=== PATIENT | male | born 1935 | race Caucasian/White ===

== ENCOUNTER 2019-11-18 16:40 | Inpatient (IN) | payer MEDICARE, MEDICAID ==
[~2019-11-18] VITALS: Ht 167.6 cm; Wt 75.7 kg
[2019-11-18] MEDS ORDERED: MORPHINE SULFATE 4 MG/ML CPJ (NOT FOR IM USE) IV STA (18:12)
[2019-11-18] MEDS ORDERED: SODIUM CHLORIDE 0.9% 1,000 ML IV ONE (18:12)
[2019-11-18 19:29] LABS: BASOPHILS % 0.5 % (0.0-2.0); EOSINOPHILS % 4.8 % (0.0-5.0); HEMATOCRIT. 43.2 % (42.0-52.0); HEMOGLOBIN. 14.7 g/dL (14.0-18.0); LYMPHOCYTES % 28.8 % (20.0-50.0); MEAN CORPUSCULAR HEMOGLOBIN 32.3 pg (28.0-32.0); MEAN PLATELET VOLUME 7.2 fl (7.4-10.4); MONOCYTES % 11.3 % (2.0-8.0); NEUTROPHILS % 54.6 % (40.0-76.0); PLATELET 216 x1000/uL (130-400); RED BLOOD CELL COUNT 4.54 mill/uL (4.7-6.1); RED CELL DISTRIBUTION WIDTH 14.8 % (11.6-14.6)
[2019-11-18 19:30] LABS: CHLORIDE 111 mEq/L (98-107)
[2019-11-18 19:33] LABS: INR 1.1; PROTHROMBIN TIME 11.7 sec (9.6-11.0)
[2019-11-19 02:12] VITALS: BP 128/75
[2019-11-19] MEDS ORDERED: LIP40 PO (02:37)
[2019-11-19] MEDS ORDERED: FAMO20TA8 PO ×2 (02:37→04:25)
[2019-11-19] MEDS ORDERED: CRAN450T10 PO (02:37)
[2019-11-19] MEDS ORDERED: ERGO500013 PO (02:37)
[2019-11-19] MEDS ORDERED: MULT-1116 PO (02:37)
[2019-11-19] MEDS ORDERED: ASPI-1158 PO (02:37)
[2019-11-19] MEDS ORDERED: DOCU-138 PO (02:37)
[2019-11-19] MEDS ORDERED: MORPHINE SULFATE 2 MG/ML CPJ (NOT FOR IM USE) IV PRN (02:45)
[2019-11-19 04:00] VITALS: BP 127/88
[2019-11-19] MEDS: DIPHENHYDRAMINE 50MG CAPSULE PO PRN (04:34)
[2019-11-19] MEDS ORDERED: FAMOTIDINE(NEO) 1MG/ML SUSP PO SCH (07:20)
[2019-11-19 07:31] LABS: BASOPHILS % 0.4 % (0.0-2.0); EOSINOPHILS % 2.7 % (0.0-5.0); HEMATOCRIT. 45.7 % (42.0-52.0); HEMOGLOBIN. 15.4 g/dL (14.0-18.0); LYMPHOCYTES % 23.1 % (20.0-50.0); MEAN CORPUSCULAR HEMOGLOBIN 32.4 pg (28.0-32.0); MEAN CORPUSCULAR VOLUME 96.2 fL (80.0-94.0); MEAN PLATELET VOLUME 7.5 fl (7.4-10.4); MONOCYTES % 11.7 % (2.0-8.0); NEUTROPHILS % 62.1 % (40.0-76.0); PLATELET 264 x1000/uL (130-400); RED BLOOD CELL COUNT 4.75 mill/uL (4.7-6.1); RED CELL DISTRIBUTION WIDTH 14.7 % (11.6-14.6)
[2019-11-19 08:00] VITALS: BP 147/87
[2019-11-19] MEDS: FAMOTIDINE 20MG TABLET PO SCH (08:52)
[2019-11-19] MEDS: DOCUSATE SODIUM 100MG CAPSULE PO SCH ×2 (08:52→16:17)
[2019-11-19] MEDS: MULTIVITAMINS,THER W-MINERALS TABLET PO SCH (08:52)
[2019-11-19] MEDS ORDERED: ASPIRIN 81MG EC TABLET PO SCH (09:00)
[2019-11-19] MEDS ORDERED: MEDICATION NOT ON FORMULARY EA (Multivitamin (Multi-Vitamin Daily) 1 EACH) PO SCH (09:00)
[2019-11-19] MEDS ORDERED: ACETAMINOPHEN 325MG TABLET PO PRN (09:15)
[2019-11-19] MEDS ORDERED: ONDANSETRON HCL 4MG/2ML INJ IV PRN (09:15)
[2019-11-19 12:00] VITALS: BP 147/87
[2019-11-19] MEDS ORDERED: CLONIDINE 0.1MG TABLET PO PRN (15:15)
[2019-11-19 16:00] VITALS: BP 144/80
[2019-11-19 20:00] VITALS: BP 126/73
[2019-11-19] MEDS: ATORVASTATIN CALCIUM 40MG TABLET PO SCH (22:10)
[2019-11-20] VITALS: BP 142/66
[2019-11-20 04:00] VITALS: BP 125/61
[2019-11-20] MEDS: FAMOTIDINE 20MG TABLET PO SCH (06:34)
[2019-11-20] MEDS ORDERED: GENTAMICIN SULF 40MG/ML 2ML VIAL ONE (06:58)
[2019-11-20] MEDS ORDERED: MORPHINE SULFATE/PF 1MG/ML 10ML AMP ONE (06:58)
[2019-11-20] MEDS ORDERED: ROPIVACAINE HCL 10MG/ML 20 ML VIAL EPI ONE (06:59)
[2019-11-20] MEDS ORDERED: EPINEPHRINE 1:1000 1 MG/ML AMP ONE (06:59)
[2019-11-20] MEDS ORDERED: BUPIVACAINE HCL/PF 0.25% (2.5MG/ML) 10ML ONE (06:59)
[2019-11-20] MEDS ORDERED: BACITRACIN 15GM TUBE TOP ONE (06:59)
[2019-11-20] MEDS ORDERED: KETOROLAC 30MG/ML VIAL ONE (06:59)
[2019-11-20] MEDS ORDERED: BACITRACIN 50,000 UNITS/VIAL ONE (07:00)
[2019-11-20] MEDS ORDERED: NORMAL SALINE 0.9% 10 ML SYR ONE ×2 (07:00→09:48)
[2019-11-20] MEDS ORDERED: VANCOMYCIN HCL 1 GM/VIAL ONE (07:00)
[2019-11-20] MEDS ORDERED: TRANEXAMIC ACID 1,000 MG in SODIUM CHLORIDE 0.9% 100 ML IV NR ×4 (07:30)
[2019-11-20] MEDS ORDERED: TRANEXAMIC ACID 1,000 MG/10 ML IV ONE (07:30)
[2019-11-20] MEDS ORDERED: GLYCOPYRROLATE 0.2 MG/ML 2ML VIAL ONE ×2 (07:37→09:31)
[2019-11-20] MEDS ORDERED: FENTANYL CITRATE/PF 50MCG/ML 2ML VIAL ONE (07:37)
[2019-11-20] MEDS ORDERED: PROPOFOL 200MG/20ML VIAL IV ONE (07:37)
[2019-11-20] MEDS ORDERED: ROCURONIUM BROMIDE 10MG/ML VIAL 5ML IV ONE (07:37)
[2019-11-20] MEDS ORDERED: NEOSTIGMINE METHYLSULFATE 1MG/ML 10 ML VIAL ONE (07:37)
[2019-11-20] MEDS ORDERED: MIDAZOLAM HCL 2 MG/2 ML VIAL ONE (07:37)
[2019-11-20] MEDS ORDERED: DEXAMETHASONE 4MG/ML 1ML VIAL ONE (07:39)
[2019-11-20] MEDS ORDERED: ONDANSETRON HCL 4MG/2ML INJ ONE (07:39)
[2019-11-20] MEDS: DOCUSATE SODIUM 100MG CAPSULE PO SCH ×2 (07:46→15:50)
[2019-11-20] MEDS: MULTIVITAMINS,THER W-MINERALS TABLET PO SCH (07:46)
[2019-11-20] MEDS ORDERED: CEFAZOLIN 1000MG PREMIX 50 ML IV SCH (08:05)
[2019-11-20] MEDS ORDERED: HYDROMORPHONE HCL/PF 2MG/ML CPJ IV PRN (08:30)
[2019-11-20] MEDS ORDERED: MEPERIDINE HCL/PF 25MG/ML CPJ IV PRN (08:30)
[2019-11-20] MEDS ORDERED: ONDANSETRON HCL 4MG/2ML INJ IV PRN ×2 (08:30→09:45)
[2019-11-20] MEDS ORDERED: LABETALOL 5MG/ML SYR 20 MG/4 ML SYRINGE IV PRN (08:30)
[2019-11-20 08:37] LABS: BASOPHILS % 0.6 % (0.0-2.0); EOSINOPHILS % 3.5 % (0.0-5.0); HEMATOCRIT. 43.5 % (42.0-52.0); MEAN CORPUSCULAR HEMOGLOBIN 32.6 pg (28.0-32.0); MEAN CORPUSCULAR VOLUME 94.6 fL (80.0-94.0); MEAN PLATELET VOLUME 7.5 fl (7.4-10.4); MONOCYTES % 10.4 % (2.0-8.0); NEUTROPHILS % 65.5 % (40.0-76.0); PLATELET 277 x1000/uL (130-400); RED CELL DISTRIBUTION WIDTH 14.5 % (11.6-14.6)
[2019-11-20 08:45] LABS: CHLORIDE 111 mEq/L (98-107)
[2019-11-20 08:56] LABS: LDL CHOLESTEROL 110 mg/dL (5-100)
[2019-11-20 08:57] LABS: CREATINE KINASE 179 IU/L (39-308)
[2019-11-20 08:58] LABS: HDL CHOLESTEROL 39 mg/dL (40-59)
[2019-11-20 09:00] LABS: CREATINE KINASE MB FRACTION 4.2 ng/mL (0.5-3.6)
[2019-11-20] MEDS ORDERED: HYDROCODONE/ACETAMINOPHEN 10/325MG TABLET PO PRN (09:45)
[2019-11-20] MEDS ORDERED: KETOROLAC 30MG/ML VIAL IV PRN (09:45)
[2019-11-20 12:00] VITALS: BP 125/60
[2019-11-20] MEDS: METOCLOPRAMIDE HCL 10MG/2ML VIAL IV SCH ×2 (13:47→22:42)
[2019-11-20] MEDS: CEFAZOLIN 1000MG PREMIX 50 ML IV SCH (15:50)
[2019-11-20 16:00] VITALS: BP 115/62
[2019-11-20] MEDS ORDERED: ASPIRIN 325MG EC TABLET PO SCH (17:00)
[2019-11-20] MEDS ORDERED: ENOXAPARIN 40MG/0.4ML SYR SUBCUT SCH ×2 (18:00→21:00)
[2019-11-20 20:00] VITALS: BP 119/65
[2019-11-20] MEDS: ATORVASTATIN CALCIUM 40MG TABLET PO SCH (20:22)
[2019-11-20] MEDS: HYDROCODONE/ACETAMINOPHEN 5/325MG TABLET PO PRN (20:25)
[2019-11-21] VITALS: BP 125/65
[2019-11-21] MEDS: CEFAZOLIN 1000MG PREMIX 50 ML IV SCH ×2 (00:55→08:00)
[2019-11-21] MEDS: DIPHENHYDRAMINE 50MG CAPSULE PO PRN ×2 (00:55→11:50)
[2019-11-21 04:00] VITALS: BP 139/64
[2019-11-21] MEDS: METOCLOPRAMIDE HCL 10MG/2ML VIAL IV SCH ×2 (06:00→13:43)
[2019-11-21] MEDS: HYDROCODONE/ACETAMINOPHEN 5/325MG TABLET PO PRN (06:12)
[2019-11-21] MEDS: FAMOTIDINE 20MG TABLET PO SCH (06:45)
[2019-11-21] MEDS ORDERED: LORAZEPAM 2MG/ML CPJ IV PRN (07:45)
[2019-11-21 08:07] LABS: BASOPHILS % 0.4 % (0.0-2.0); EOSINOPHILS % 2.5 % (0.0-5.0); HEMATOCRIT. 38.4 % (42.0-52.0); HEMOGLOBIN. 12.9 g/dL (14.0-18.0); MEAN CORPUSCULAR HEMOGLOBIN 32.1 pg (28.0-32.0); MEAN CORPUSCULAR VOLUME 95.7 fL (80.0-94.0); MEAN PLATELET VOLUME 7.4 fl (7.4-10.4); MONOCYTES % 10.4 % (2.0-8.0); NEUTROPHILS % 70.7 % (40.0-76.0); PLATELET 264 x1000/uL (130-400); RED BLOOD CELL COUNT 4.01 mill/uL (4.7-6.1); RED CELL DISTRIBUTION WIDTH 14.5 % (11.6-14.6)
[2019-11-21 08:44] LABS: CHLORIDE 111 mEq/L (98-107)
[2019-11-21] MEDS: MULTIVITAMINS,THER W-MINERALS TABLET PO SCH (09:23)
[2019-11-21] MEDS: DOCUSATE SODIUM 100MG CAPSULE PO SCH (09:23)
[2019-11-21 11:52] VITALS: BP 119/63
== END 2019-11-21 16:49 | DRG 301 ==
LOC: ER 16:40 → 6EST 20:52 → ENRESERV 11-19 00:16
PROVIDERS: ADMIT Internal Medicine; ATTEND Internal Medicine
PROC: 0SRS0JA Replacement of Left Hip Joint, Femoral Surface with Synthetic Substitute, Uncemented, Open Approach (ICD-10-PCS; principal; 2019-11-20)
DX: S72.002A Fracture of unspecified part of neck of left femur, initial encounter for closed fracture (principal); E43 Unspecified severe protein-calorie malnutrition; E87.8 Other disorders of electrolyte and fluid balance, not elsewhere classified; E86.0 Dehydration; D64.9 Anemia, unspecified; F03.90 Unspecified dementia, unspecified severity, without behavioral disturbance, psychotic disturbance, mood disturbance, and anxiety; E78.5 Hyperlipidemia, unspecified; K21.9 Gastro-esophageal reflux disease without esophagitis; E03.9 Hypothyroidism, unspecified; D72.829 Elevated white blood cell count, unspecified; E78.00 Pure hypercholesterolemia, unspecified; W06.XXXA Fall from bed, initial encounter; R79.89 Other specified abnormal findings of blood chemistry; M17.12 Unilateral primary osteoarthritis, left knee; Y93.89 Activity, other specified; Y92.128 Other place in nursing home as the place of occurrence of the external cause; Z86.73 Personal history of transient ischemic attack (TIA), and cerebral infarction without residual deficits; Y99.8 Other external cause status
CPT/HCPCS: 36415; 71045; 72170; 73502; 73560; 80048; 80053; 80061; 82550; 82553; 83735; 83880; 84439; 84443; 84484; 85025; 85379; 86850; 86900; 88305; 88311; 93005; 93306; 93970; 97162; 97530; 99285; C1776; J0690; J1100; J1580; J1650; J1885; J2060; J2250; J2270; J2274; J2405; J2704; J2710; J2765; J2795; J3010; J3370; J3490; J7030; J7050; Q0163

== ENCOUNTER 2019-12-09 15:32 | Inpatient (IN) | payer MEDICARE, MEDICAID ==
[~2019-12-09] VITALS: Ht 170.2 cm; Wt 67.7 kg
[~2019-12-09 15:32] MED LIST: ASPI-1158 PO; CRAN450T10 PO; DOCU-138 PO; ERGO500013 PO; FAMO20TA8 PO; LIP40 PO; MULT-1116 PO
[2019-12-09] MEDS ORDERED: SODIUM CHLORIDE 0.9% 500 ML IV ONE (15:53)
[2019-12-09] MEDS ORDERED: LEVOFLOXACIN 500MG PREMIX 100 ML IV ONE (16:00)
[2019-12-09 17:03] LABS: BASOPHILS % 0.1 % (0.0-2.0); EOSINOPHILS % 0.1 % (0.0-5.0); HEMATOCRIT. 43.6 % (42.0-52.0); HEMOGLOBIN. 14.2 g/dL (14.0-18.0); LYMPHOCYTES % 12.8 % (20.0-50.0); MEAN CORPUSCULAR HEMOGLOBIN 31.3 pg (28.0-32.0); MEAN CORPUSCULAR VOLUME 96.5 fL (80.0-94.0); MEAN PLATELET VOLUME 8.8 fl (7.4-10.4); MONOCYTES % 7.3 % (2.0-8.0); NEUTROPHILS % 79.7 % (40.0-76.0); PLATELET 517 x1000/uL (130-400); RED BLOOD CELL COUNT 4.52 mill/uL (4.7-6.1); RED CELL DISTRIBUTION WIDTH 15.5 % (11.6-14.6)
[2019-12-09 17:06] LABS: INR 1.2; PROTHROMBIN TIME 12.7 sec (9.6-11.0)
[2019-12-09 17:11] LABS: CHLORIDE 111 mEq/L (98-107)
[2019-12-09 17:15] LABS: ETHANOL BLOOD < 10 mg/dL
[2019-12-09 17:49] LABS: BG BASE EXCESS -7.2 mmol/L (-2.0-2.0); BG CARBOXYHEMOGLOBIN 0.9 % (0.5-1.5); BG DEOXYHEMOGLOBIN 24.9 % (0.0-5.0); BG FRACTION INSPIRED OXYGEN 100; BG HCO3 ACT 20.9 mmol/L (22.0-26.0); BG OXYGEN SATURATION 74.9 % (92.0-98.5); BG OXYHEMOGLOBIN 74.2 % (94.0-97.0); BG PCO2 52.1 mmHg (35.0-45.0); BG PH 7.221 (7.350-7.450); BG PO2 48.6 mmHg (75.0-100.0); BG SAMPLE SITE RIGHT RADIAL; BG TIDAL VOLUME(mL) 500 mL; BG TOTAL HEMOGLOBIN 14.8 g/dL (12.0-18.0); BG VENT MODE VENT - A/C; BG VENT RATE 16 set
[2019-12-09] MEDS ORDERED: ETOMIDATE 2MG/ML 10ML VIAL IV ONE ×2 (18:00)
[2019-12-09] MEDS ORDERED: VECURONIUM BROMIDE 10 MG/VIAL IV ONE ×2 (18:00)
[2019-12-09] MEDS ORDERED: PROPOFOL 10MG/ML 100ML 100 ML IV ONE (18:00)
[2019-12-09 20:00] LABS: BG BASE EXCESS -6.2 mmol/L (-2.0-2.0); BG CARBOXYHEMOGLOBIN 0.2 % (0.5-1.5); BG DEOXYHEMOGLOBIN 1.2 % (0.0-5.0); BG FRACTION INSPIRED OXYGEN 100; BG HCO3 ACT 21.2 mmol/L (22.0-26.0); BG METHEMOGLOBIN 0.2 % (0.0-1.5); BG OXYGEN SATURATION 98.8 % (92.0-98.5); BG OXYHEMOGLOBIN 98.4 % (94.0-97.0); BG PCO2 48.8 mmHg (35.0-45.0); BG PH 7.255 (7.350-7.450); BG PIP 24 cmH2O; BG PO2 172.8 mmHg (75.0-100.0); BG SAMPLE SITE RIGHT BRACHIAL; BG TIDAL VOLUME(mL) 500 mL; BG VENT MODE VENT - A/C; BG VENT RATE 16 set
[2019-12-09 21:52] LABS: CLARITY URINE TURBID (CLEAR); COLOR URINE DK YELLOW (YELLOW); KETONES URINE NEGATIVE (NEGATIVE); LEUKOCYTE ESTERASE URINE 1+ (NEGATIVE); NITRITE URINE NEGATIVE (NEGATIVE); OCCULT BLOOD URINE 1+ (NEGATIVE); PH URINE 6.5 (4.5-8.0); PROTEIN URINE 2+ (NEGATIVE); SPECIFIC GRAVITY URINE 1.025 (1.005-1.030)
[2019-12-10] VITALS (82 sets, daily range): BP systolic 46–155; BP diastolic 18–77
[2019-12-10] MEDS ORDERED: PROPOFOL 10MG/ML 100ML 100 ML IV SCH (03:00)
[2019-12-10] MEDS ORDERED: NOREPINEPHRINE 4 MG in DEXT 5% WATER 246 ML IV PRN ×2 (03:00→03:15)
[2019-12-10] MEDS ORDERED: PHENYLEPHRINE 20 MG in DEXT 5% WATER 248 ML IV PRN ×2 (03:00→03:15)
[2019-12-10] MEDS: PROPOFOL 10MG/ML 100ML 100 ML IV PRN ×3 (03:18→19:48)
[2019-12-10] MEDS ORDERED: AZITHROMYCIN 500 MG in DEXT 5% WATER 250 ML IV SCH (04:00)
[2019-12-10] MEDS ORDERED: ACETAMINOPHEN 650MG/20.3ML UDC PO PRN (04:00)
[2019-12-10] MEDS ORDERED: ONDANSETRON HCL 4MG/2ML INJ IV PRN (04:00)
[2019-12-10] MEDS ORDERED: SODIUM CHLORIDE 0.9% 100 ML IV SCH (05:00)
[2019-12-10] MEDS ORDERED: VANCOMYCIN 1 G PREMIX 200 ML IV NR (05:00)
[2019-12-10] MEDS: AZITHROMYCIN 500 MG in DEXT 5% WATER 250 ML IV SCH (05:39)
[2019-12-10] MEDS ORDERED: SODIUM CHLORIDE 0.9% 1,000 ML IV SCH (05:42)
[2019-12-10 05:49] LABS: HEMATOCRIT 39.5 % (42.0-52.0); HEMOGLOBIN 13.1 g/dL (14.0-18.0); MEAN CORPUSCULAR HEMOGLOBIN 31.4 pg (28.0-32.0); MEAN CORPUSCULAR VOLUME 94.8 fL (80.0-94.0); RED BLOOD CELL COUNT 4.17 mill/uL (4.7-6.1); RED CELL DISTRIBUTION WIDTH 15.3 % (11.6-14.6)
[2019-12-10] MEDS: CEFEPIME 1,000 MG in DEXTROSE 5% WATER 50 ML IV SCH (08:31)
[2019-12-10] MEDS: PANTOPRAZOLE SODIUM 40 MG/VIAL IV SCH (08:31)
[2019-12-10 08:38] LABS: BG CARBOXYHEMOGLOBIN 0.3 % (0.5-1.5); BG DEOXYHEMOGLOBIN 0.6 % (0.0-5.0); BG HCO3 ACT 17.6 mmol/L (22.0-26.0); BG METHEMOGLOBIN 0.3 % (0.0-1.5); BG OXYGEN SATURATION 99.4 % (92.0-98.5); BG OXYHEMOGLOBIN 98.8 % (94.0-97.0); BG PCO2 33.1 mmHg (35.0-45.0); BG PH 7.344 (7.350-7.450); BG PO2 246.5 mmHg (75.0-100.0); BG SAMPLE SITE RIGHT RADIAL; BG TIDAL VOLUME(mL) 500 mL; BG TOTAL HEMOGLOBIN 13.8 g/dL (12.0-18.0); BG VENT MODE VENT - A/C; BG VENT RATE 18 set
[2019-12-10 10:24] LABS: PLATELET 331 x1000/uL (130-400)
[2019-12-10] MEDS: SODIUM CHLORIDE 0.45% 1,000 ML IV SCH (11:01)
[2019-12-10] MEDS ORDERED: PHENYLEPHRINE 40 MG in DEXT 5% WATER 246 ML IV PRN (12:00)
[2019-12-10] MEDS ORDERED: FENTANYL CITRATE/PF 1,000 MCG in SODIUM CHLORIDE 0.9% 80 ML IV PRN (13:30)
[2019-12-10] MEDS ORDERED: BISACODYL 10MG SUPP PR NR (14:00)
[2019-12-10] MEDS: ENOXAPARIN 30MG/0.3ML SYR SUBCUT SCH (15:00)
[2019-12-10] MEDS: FENTANYL CITRATE/PF 500 MCG in SODIUM CHLORIDE 0.9% 40 ML IV PRN (15:45)
[2019-12-10] MEDS ORDERED: VANCOMYCIN 500 MG PREMIX 100 ML IV SCH (17:00)
[2019-12-10] MEDS ORDERED: VANCOMYCIN 750 MG in DEXT 5% WATER 250 ML IV SCH (20:00)
[2019-12-10] MEDS: NOREPINEPHRINE 16 MG in DEXT 5% WATER 234 ML IV PRN (20:25)
[2019-12-10] MEDS: HYDROXYCHLOROQUINE SULFATE 200MG TABLET PO SCH (21:00)
[2019-12-11] VITALS (90 sets, daily range): BP systolic 68–134; BP diastolic 24–76
[2019-12-11] MEDS: SODIUM CHLORIDE 0.45% 1,000 ML IV SCH ×2 (01:56→14:21)
[2019-12-11] MEDS: PROPOFOL 10MG/ML 100ML 100 ML IV PRN ×2 (05:18→16:21)
[2019-12-11] MEDS: AZITHROMYCIN 500 MG in DEXT 5% WATER 250 ML IV SCH (05:26)
[2019-12-11 05:38] LABS: BASOPHILS % 0.2 % (0.0-2.0); EOSINOPHILS % 0.8 % (0.0-5.0); HEMOGLOBIN. 12.8 g/dL (14.0-18.0); LYMPHOCYTES % 15.5 % (20.0-50.0); MEAN CORPUSCULAR HEMOGLOBIN 31.1 pg (28.0-32.0); MEAN CORPUSCULAR VOLUME 94.9 fL (80.0-94.0); MEAN PLATELET VOLUME 8.5 fl (7.4-10.4); MONOCYTES % 5.5 % (2.0-8.0); PLATELET 230 x1000/uL (130-400); RED BLOOD CELL COUNT 4.11 mill/uL (4.7-6.1); RED CELL DISTRIBUTION WIDTH 15.3 % (11.6-14.6)
[2019-12-11] MEDS: CEFEPIME 1,000 MG in DEXTROSE 5% WATER 50 ML IV SCH (08:31)
[2019-12-11] MEDS: FENTANYL CITRATE/PF 500 MCG in SODIUM CHLORIDE 0.9% 40 ML IV PRN ×2 (08:33→20:37)
[2019-12-11] MEDS: ZINC SULFATE 220 MG ( 50 ) CAPSULE PO SCH (08:47)
[2019-12-11] MEDS: PANTOPRAZOLE SODIUM 40 MG/VIAL IV SCH (08:47)
[2019-12-11] MEDS: ASCORBIC ACID 500 MG TABLET PO SCH (08:48)
[2019-12-11] MEDS: HYDROXYCHLOROQUINE SULFATE 200MG TABLET PO SCH ×2 (08:48→20:56)
[2019-12-11 10:11] LABS: BG BASE EXCESS -5.9 mmol/L (-2.0-2.0); BG CARBOXYHEMOGLOBIN 0.1 % (0.5-1.5); BG DEOXYHEMOGLOBIN 2.4 % (0.0-5.0); BG FRACTION INSPIRED OXYGEN 50; BG HCO3 ACT 18.1 mmol/L (22.0-26.0); BG METHEMOGLOBIN 0.3 % (0.0-1.5); BG OXYGEN SATURATION 97.6 % (92.0-98.5); BG OXYHEMOGLOBIN 97.2 % (94.0-97.0); BG PH 7.385 (7.350-7.450); BG PO2 100.4 mmHg (75.0-100.0); BG SAMPLE SITE RIGHT RADIAL; BG TIDAL VOLUME(mL) 500 mL; BG TOTAL HEMOGLOBIN 11.9 g/dL (12.0-18.0); BG VENT MODE VENT - A/C; BG VENT RATE 18 set
[2019-12-11] MEDS ORDERED: NA PHOS,M-B/NA PHOS,DI-BA ENEMA 118ML PR NR (13:17)
[2019-12-11] MEDS: ENOXAPARIN 30MG/0.3ML SYR SUBCUT SCH (14:21)
[2019-12-11] MEDS: NOREPINEPHRINE 16 MG in DEXT 5% WATER 234 ML IV PRN (19:24)
[2019-12-12] VITALS (82 sets, daily range): BP systolic 74–152; BP diastolic 18–74
[2019-12-12] MEDS: PROPOFOL 10MG/ML 100ML 100 ML IV PRN ×3 (02:42→18:30)
[2019-12-12 05:50] LABS: BASOPHILS % 0.2 % (0.0-2.0); EOSINOPHILS % 0.6 % (0.0-5.0); HEMATOCRIT. 36.2 % (42.0-52.0); HEMOGLOBIN. 11.8 g/dL (14.0-18.0); LYMPHOCYTES % 13.2 % (20.0-50.0); MEAN CORPUSCULAR HEMOGLOBIN 30.9 pg (28.0-32.0); MEAN CORPUSCULAR VOLUME 94.6 fL (80.0-94.0); MEAN PLATELET VOLUME 8.2 fl (7.4-10.4); MONOCYTES % 6.4 % (2.0-8.0); NEUTROPHILS % 79.6 % (40.0-76.0); PLATELET 245 x1000/uL (130-400); RED BLOOD CELL COUNT 3.83 mill/uL (4.7-6.1); RED CELL DISTRIBUTION WIDTH 15.3 % (11.6-14.6)
[2019-12-12] MEDS: AZITHROMYCIN 500 MG in DEXT 5% WATER 250 ML IV SCH (06:23)
[2019-12-12] MEDS: SODIUM CHLORIDE 0.45% 1,000 ML IV SCH ×3 (06:23→20:54)
[2019-12-12 07:46] LABS: CHLORIDE 112 mEq/L (98-107)
[2019-12-12 07:52] LABS: PHOSPHORUS 6.7 mg/dL (2.5-4.9)
[2019-12-12] MEDS: HYDROXYCHLOROQUINE SULFATE 200MG TABLET PO SCH ×2 (08:45→20:23)
[2019-12-12] MEDS: PANTOPRAZOLE SODIUM 40 MG/VIAL IV SCH (08:45)
[2019-12-12] MEDS: ZINC SULFATE 220 MG ( 50 ) CAPSULE PO SCH (08:45)
[2019-12-12] MEDS: CEFEPIME 1,000 MG in DEXTROSE 5% WATER 50 ML IV SCH (08:45)
[2019-12-12] MEDS: ASCORBIC ACID 500 MG TABLET PO SCH (08:46)
[2019-12-12 09:52] LABS: BG BASE EXCESS -8.7 mmol/L (-2.0-2.0); BG CARBOXYHEMOGLOBIN 0.3 % (0.5-1.5); BG DEOXYHEMOGLOBIN 4.5 % (0.0-5.0); BG FRACTION INSPIRED OXYGEN 60; BG HCO3 ACT 15.8 mmol/L (22.0-26.0); BG METHEMOGLOBIN 0.1 % (0.0-1.5); BG OXYGEN SATURATION 95.5 % (92.0-98.5); BG OXYHEMOGLOBIN 95.1 % (94.0-97.0); BG PCO2 29.9 mmHg (35.0-45.0); BG PH 7.342 (7.350-7.450); BG PO2 85.8 mmHg (75.0-100.0); BG SAMPLE SITE RIGHT RADIAL; BG TIDAL VOLUME(mL) 500 mL; BG TOTAL HEMOGLOBIN 11.7 g/dL (12.0-18.0); BG VENT MODE VENT - A/C; BG VENT RATE 18 set
[2019-12-12] MEDS: FENTANYL CITRATE/PF 500 MCG in SODIUM CHLORIDE 0.9% 40 ML IV PRN ×2 (11:15→20:53)
[2019-12-12] MEDS: NOREPINEPHRINE 16 MG in DEXT 5% WATER 234 ML IV PRN (13:22)
[2019-12-12] MEDS: ENOXAPARIN 30MG/0.3ML SYR SUBCUT SCH (14:50)
[2019-12-12] MEDS ORDERED: FENTANYL CITRATE/PF 1,000 MCG in SODIUM CHLORIDE 0.9% 80 ML IV PRN (21:15)
[2019-12-13] VITALS (67 sets, daily range): BP systolic 82–140; BP diastolic 50–96
[2019-12-13] MEDS: NOREPINEPHRINE 32 MG in DEXT 5% WATER 468 ML IV PRN ×2 (00:37→21:02)
[2019-12-13] MEDS: PROPOFOL 10MG/ML 100ML 100 ML IV PRN ×3 (01:10→18:08)
[2019-12-13] MEDS: AZITHROMYCIN 500 MG in DEXT 5% WATER 250 ML IV SCH (05:04)
[2019-12-13 05:39] LABS: BASOPHILS % 0.2 % (0.0-2.0); HEMATOCRIT. 34.6 % (42.0-52.0); HEMOGLOBIN. 11.4 g/dL (14.0-18.0); LYMPHOCYTES % 14.7 % (20.0-50.0); MEAN CORPUSCULAR VOLUME 94.2 fL (80.0-94.0); MEAN PLATELET VOLUME 8.1 fl (7.4-10.4); MONOCYTES % 5.3 % (2.0-8.0); NEUTROPHILS % 78.8 % (40.0-76.0); PLATELET 211 x1000/uL (130-400); RED BLOOD CELL COUNT 3.68 mill/uL (4.7-6.1); RED CELL DISTRIBUTION WIDTH 15.4 % (11.6-14.6)
[2019-12-13] MEDS: CEFEPIME 1,000 MG in DEXTROSE 5% WATER 50 ML IV SCH (07:53)
[2019-12-13 08:13] LABS: BG BASE EXCESS -13.5 mmol/L (-2.0-2.0); BG CARBOXYHEMOGLOBIN 0.3 % (0.5-1.5); BG DEOXYHEMOGLOBIN 5.1 % (0.0-5.0); BG METHEMOGLOBIN 0.3 % (0.0-1.5); BG OXYGEN SATURATION 94.9 % (92.0-98.5); BG OXYHEMOGLOBIN 94.3 % (94.0-97.0); BG PCO2 26.7 mmHg (35.0-45.0); BG PH 7.269 (7.350-7.450); BG PO2 83.5 mmHg (75.0-100.0); BG SAMPLE SITE RIGHT BRACHIAL; BG TIDAL VOLUME(mL) 500 mL; BG TOTAL HEMOGLOBIN 10.6 g/dL (12.0-18.0); BG VENT MODE VENT - A/C; BG VENT RATE 18 set
[2019-12-13] MEDS: PANTOPRAZOLE SODIUM 40 MG/VIAL IV SCH (09:31)
[2019-12-13] MEDS: HYDROXYCHLOROQUINE SULFATE 200MG TABLET PO SCH ×2 (09:32→20:33)
[2019-12-13] MEDS: ENOXAPARIN 30MG/0.3ML SYR SUBCUT SCH (09:32)
[2019-12-13] MEDS ORDERED: SODIUM BICARBONATE 8.4% 1 MEQ/ML 50ML SYR IV NR (10:00)
[2019-12-13] MEDS: ASCORBIC ACID 500 MG TABLET PO SCH (11:13)
[2019-12-13] MEDS: ZINC SULFATE 220 MG ( 50 ) CAPSULE PO SCH (11:13)
[2019-12-13] MEDS: SODIUM CHLORIDE 0.45% 1,000 ML IV SCH (11:40)
[2019-12-13 12:33] LABS: HEPATITIS B SURFACE ANTIGEN NEGATIVE
[2019-12-13 13:02] LABS: HEPATITIS A AB IGM NEGATIVE (NEGATIVE)
[2019-12-13] MEDS: FENTANYL CITRATE/PF 1,000 MCG in SODIUM CHLORIDE 0.9% 80 ML IV PRN (14:30)
[2019-12-14] VITALS (83 sets, daily range): BP systolic 76–130; BP diastolic 49–73
[2019-12-14] MEDS: SODIUM CHLORIDE 0.45% 1,000 ML IV SCH (00:24)
[2019-12-14] MEDS: PROPOFOL 10MG/ML 100ML 100 ML IV PRN ×2 (03:09→13:14)
[2019-12-14] MEDS: FENTANYL CITRATE/PF 1,000 MCG in SODIUM CHLORIDE 0.9% 80 ML IV PRN ×2 (03:36→14:22)
[2019-12-14 05:39] LABS: BASOPHILS % 0.4 % (0.0-2.0); EOSINOPHILS % 0.9 % (0.0-5.0); HEMOGLOBIN. 10.5 g/dL (14.0-18.0); LYMPHOCYTES % 10.3 % (20.0-50.0); MEAN CORPUSCULAR HEMOGLOBIN 31.4 pg (28.0-32.0); MEAN CORPUSCULAR VOLUME 92.8 fL (80.0-94.0); MEAN PLATELET VOLUME 8.7 fl (7.4-10.4); MONOCYTES % 4.5 % (2.0-8.0); NEUTROPHILS % 83.9 % (40.0-76.0); PLATELET 202 x1000/uL (130-400); RED BLOOD CELL COUNT 3.34 mill/uL (4.7-6.1); RED CELL DISTRIBUTION WIDTH 15.4 % (11.6-14.6)
[2019-12-14] MEDS: AZITHROMYCIN 500 MG in DEXT 5% WATER 250 ML IV SCH (06:06)
[2019-12-14] MEDS: PANTOPRAZOLE SODIUM 40 MG/VIAL IV SCH (08:50)
[2019-12-14] MEDS: ZINC SULFATE 220 MG ( 50 ) CAPSULE PO SCH (08:50)
[2019-12-14] MEDS: CEFEPIME 1,000 MG in DEXTROSE 5% WATER 50 ML IV SCH (08:51)
[2019-12-14] MEDS: ASCORBIC ACID 500 MG TABLET PO SCH (08:51)
[2019-12-14] MEDS: HYDROXYCHLOROQUINE SULFATE 200MG TABLET PO SCH ×2 (08:51→20:52)
[2019-12-14 09:26] LABS: BG BASE EXCESS -8.4 mmol/L (-2.0-2.0); BG CARBOXYHEMOGLOBIN 0.3 % (0.5-1.5); BG DEOXYHEMOGLOBIN 5.7 % (0.0-5.0); BG FRACTION INSPIRED OXYGEN 90; BG HCO3 ACT 17.1 mmol/L (22.0-26.0); BG METHEMOGLOBIN 0.3 % (0.0-1.5); BG OXYGEN SATURATION 94.3 % (92.0-98.5); BG OXYHEMOGLOBIN 93.7 % (94.0-97.0); BG PCO2 35.4 mmHg (35.0-45.0); BG PH 7.303 (7.350-7.450); BG PO2 84.9 mmHg (75.0-100.0); BG SAMPLE SITE RIGHT RADIAL; BG TIDAL VOLUME(mL) 500 mL; BG TOTAL HEMOGLOBIN 10.9 g/dL (12.0-18.0); BG VENT MODE VENT - A/C; BG VENT RATE 24 set
[2019-12-14] MEDS ORDERED: SODIUM BICARBONATE 8.4% 1 MEQ/ML 50ML SYR IV NR (11:15)
[2019-12-14] MEDS ORDERED: PROPOFOL 10MG/ML 100ML 100 ML IV PRN (11:15)
[2019-12-14] MEDS: DOCUSATE SODIUM 250MG CAPSULE PO SCH (12:04)
[2019-12-14] MEDS: ENOXAPARIN 30MG/0.3ML SYR SUBCUT SCH (13:17)
[2019-12-14] MEDS: NOREPINEPHRINE 32 MG in DEXT 5% WATER 468 ML IV PRN (18:00)
[2019-12-15] VITALS (95 sets, daily range): BP systolic 93–128; BP diastolic 51–78
[2019-12-15] MEDS: FENTANYL CITRATE/PF 1,000 MCG in SODIUM CHLORIDE 0.9% 80 ML IV PRN ×3 (00:42→21:13)
[2019-12-15 05:52] LABS: BASOPHILS % 0.1 % (0.0-2.0); HEMATOCRIT. 32.1 % (42.0-52.0); HEMOGLOBIN. 10.6 g/dL (14.0-18.0); LYMPHOCYTES % 11.4 % (20.0-50.0); MEAN CORPUSCULAR HEMOGLOBIN 30.6 pg (28.0-32.0); MEAN CORPUSCULAR VOLUME 92.4 fL (80.0-94.0); MONOCYTES % 3.8 % (2.0-8.0); NEUTROPHILS % 81.7 % (40.0-76.0); PLATELET 255 x1000/uL (130-400); RED BLOOD CELL COUNT 3.47 mill/uL (4.7-6.1); RED CELL DISTRIBUTION WIDTH 15.3 % (11.6-14.6)
[2019-12-15] MEDS: AZITHROMYCIN 500 MG in DEXT 5% WATER 250 ML IV SCH (06:41)
[2019-12-15] MEDS: CEFEPIME 1,000 MG in DEXTROSE 5% WATER 50 ML IV SCH (08:42)
[2019-12-15] MEDS: PANTOPRAZOLE SODIUM 40 MG/VIAL IV SCH (08:42)
[2019-12-15] MEDS: DOCUSATE SODIUM 250MG CAPSULE PO SCH (08:42)
[2019-12-15] MEDS: ASCORBIC ACID 500 MG TABLET PO SCH (08:43)
[2019-12-15] MEDS: ZINC SULFATE 220 MG ( 50 ) CAPSULE PO SCH (08:43)
[2019-12-15] MEDS: HYDROXYCHLOROQUINE SULFATE 200MG TABLET PO SCH (08:43)
[2019-12-15] MEDS: PROPOFOL 10MG/ML 100ML 100 ML IV PRN ×2 (12:01→23:07)
[2019-12-15 12:24] LABS: BG BASE EXCESS -5.5 mmol/L (-2.0-2.0); BG CARBOXYHEMOGLOBIN 0.3 % (0.5-1.5); BG DEOXYHEMOGLOBIN 5.7 % (0.0-5.0); BG FRACTION INSPIRED OXYGEN 90; BG HCO3 ACT 20.5 mmol/L (22.0-26.0); BG METHEMOGLOBIN 0.2 % (0.0-1.5); BG OXYGEN SATURATION 94.3 % (92.0-98.5); BG OXYHEMOGLOBIN 93.8 % (94.0-97.0); BG PCO2 41.6 mmHg (35.0-45.0); BG PO2 77.8 mmHg (75.0-100.0); BG SAMPLE SITE RIGHT RADIAL; BG TIDAL VOLUME(mL) 500 mL; BG TOTAL HEMOGLOBIN 12.2 g/dL (12.0-18.0); BG VENT MODE VAPOTHERM; BG VENT RATE 24 set
[2019-12-15] MEDS: NOREPINEPHRINE 32 MG in DEXT 5% WATER 468 ML IV PRN (13:30)
[2019-12-15] MEDS: ENOXAPARIN 30MG/0.3ML SYR SUBCUT SCH (14:32)
[2019-12-15 22:56] LABS: BG BASE EXCESS -12.5 mmol/L (-2.0-2.0); BG CARBOXYHEMOGLOBIN 0.1 % (0.5-1.5); BG DEOXYHEMOGLOBIN 8.3 % (0.0-5.0); BG FRACTION INSPIRED OXYGEN 90; BG METHEMOGLOBIN 0.3 % (0.0-1.5); BG OXYGEN SATURATION 91.7 % (92.0-98.5); BG OXYHEMOGLOBIN 91.3 % (94.0-97.0); BG PCO2 24.3 mmHg (35.0-45.0); BG PH 7.311 (7.350-7.450); BG PO2 67.9 mmHg (75.0-100.0); BG SAMPLE SITE LEFT RADIAL; BG TIDAL VOLUME(mL) 500 mL; BG TOTAL HEMOGLOBIN 12.4 g/dL (12.0-18.0); BG VENT MODE VENT - A/C; BG VENT RATE 24 set
[2019-12-16] VITALS (55 sets, daily range): BP systolic 47–166; BP diastolic 19–69
[2019-12-16] MEDS: PROPOFOL 10MG/ML 100ML 100 ML IV PRN (06:39)
[2019-12-16 08:24] LABS: BG DEOXYHEMOGLOBIN 27.3 % (0.0-5.0); BG OXYGEN SATURATION 72.7 % (92.0-98.5); BG OXYHEMOGLOBIN 72.7 % (94.0-97.0); BG PCO2 44.7 mmHg (35.0-45.0); BG PH 7.246 (7.350-7.450); BG PO2 41.5 mmHg (75.0-100.0); BG SAMPLE SITE RIGHT RADIAL; BG TIDAL VOLUME(mL) 500 mL; BG TOTAL HEMOGLOBIN 11.7 g/dL (12.0-18.0); BG VENT MODE VENT - A/C; BG VENT RATE 24 set
[2019-12-16] MEDS ORDERED: MORPHINE SULFATE 2 MG/ML CPJ (NOT FOR IM USE) IV PRN (09:15)
[2019-12-16] MEDS ORDERED: LORAZEPAM 2MG/ML CPJ IV PRN (09:15)
[2019-12-16] MEDS ORDERED: MORPHINE SULFATE 250 MG in DEXT 5% WATER 240 ML IV PRN (10:00)
[2019-12-16 11:57] LABS: HEMATOCRIT. 34.8 % (42.0-52.0); HEMOGLOBIN. 11.3 g/dL (14.0-18.0); MEAN CORPUSCULAR HEMOGLOBIN 30.8 pg (28.0-32.0); MEAN CORPUSCULAR VOLUME 94.9 fL (80.0-94.0); MEAN PLATELET VOLUME 8.4 fl (7.4-10.4); PLATELET 324 x1000/uL (130-400); RED BLOOD CELL COUNT 3.66 mill/uL (4.7-6.1)
[2019-12-16 12:05] LABS: CHLORIDE 108 mEq/L (98-107)
[2019-12-16 12:19] LABS: PLATELET ESTIMATE NORMAL
[2019-12-16] MEDS ORDERED: PROPOFOL 10MG/ML 100ML 100 ML IV PRN (13:00)
== END 2019-12-16 15:08 | disposition expired | DRG 720 ==
LOC: ER 15:32 → EDBEDREQSVC 17:18 → EDBEDREQ 17:18 → EDBEDREQTM 17:18 → MICUSO 18:42 → EDBEDREQ 18:46 → EDBEDREQTM 18:46 → EDBEDREQ 20:38 → ENRESERV 12-10 01:34
PROVIDERS: ADMIT Internal Medicine; ATTEND Internal Medicine
PROC: 5A1955Z Respiratory Ventilation, Greater than 96 Consecutive Hours (ICD-10-PCS; principal; 2019-12-09)
PROC: 0BH18EZ Insertion of Endotracheal Airway into Trachea, Via Natural or Artificial Opening Endoscopic (ICD-10-PCS; 2019-12-09)
PROC: 0W9930Z Drainage of Right Pleural Cavity with Drainage Device, Percutaneous Approach (ICD-10-PCS; 2019-12-09)
PROC: 06HY33Z Insertion of Infusion Device into Lower Vein, Percutaneous Approach (ICD-10-PCS; 2019-12-09)
PROC: B54BZZA Ultrasonography of Right Lower Extremity Veins, Guidance (ICD-10-PCS; 2019-12-09)
DX: A41.89 Other specified sepsis (principal); U07.1 COVID-19; J96.01 Acute respiratory failure with hypoxia; N17.0 Acute kidney failure with tubular necrosis; E43 Unspecified severe protein-calorie malnutrition; J12.89 Other viral pneumonia; R65.21 Severe sepsis with septic shock; J93.9 Pneumothorax, unspecified; E87.2 Acidosis; E87.8 Other disorders of electrolyte and fluid balance, not elsewhere classified; R74.0 Nonspecific elevation of levels of transaminase and lactic acid dehydrogenase [LDH]; F03.90 Unspecified dementia, unspecified severity, without behavioral disturbance, psychotic disturbance, mood disturbance, and anxiety; K21.9 Gastro-esophageal reflux disease without esophagitis; E78.5 Hyperlipidemia, unspecified; N18.9 Chronic kidney disease, unspecified; E78.00 Pure hypercholesterolemia, unspecified; D72.810 Lymphocytopenia; Z96.649 Presence of unspecified artificial hip joint; R23.0 Cyanosis; Z66 Do not resuscitate; Z86.73 Personal history of transient ischemic attack (TIA), and cerebral infarction without residual deficits; Z79.82 Long term (current) use of aspirin; Z79.899 Other long term (current) drug therapy; Z68.23 Body mass index [BMI] 23.0-23.9, adult; Z87.81 Personal history of (healed) traumatic fracture
CPT/HCPCS: 36415; 36600; 71045; 74018; 80048; 80053; 80061; 80202; 80320; 81003; 82375; 82728; 82805; 82962; 83036; 83605; 83615; 83735; 83880; 84100; 84145; 84478; 84484; 85025; 85027; 85379; 86140; 86705; 86709; 86803; 87070; 87340; 87635; 87804; 93005; 94002; 94003; 96365; 99291; C9113; J0456; J0692; J1650; J1956; J2370; J2704; J3010; J3370; J3490; J7040; J7050; J7060; G0480